=== PATIENT | male | born 1950 | race Caucasian/White ===

== ENCOUNTER 2016-11-16 10:49 | Emergency (ER) | payer MEDICARE ==
[~2016-11-16 10:49] MED LIST: Iopamidol 370 76% 100 ML VIAL ONE
[2016-11-16 12:14] LABS: #Basophils 0.2 thou/uL (0.0-0.2); #Lymphocytes 1.8 thou/uL (1.20-3.40); #Monocytes 1.4 thou/uL (0.11-0.59); #Neutrophils 9.5 thou/uL (1.40-6.50); %Basophils 1.3 % (0.0-1.0); %Eosinophils 0.3 % (0.0-10.0); %Lymphocytes 13.7 % (21.0-51.0); %Neutrophils 73.8 % (42.0-75.0); Mean Corpuscular HGB CONC 33.4 g/dL (32.0-36.0); Mean Corpuscular Hemoglobin 28.8 pg (27.0-31.0); Mean Corpuscular Volume 86.2 fl (80.0-94.0); Mean Platelet Volume 6.4 fL (7.4-10.4); Platelet Count 225 thou/uL (130-400); RBC Distribution Width 11.4 % (11.5-14.5); White Blood Cell (WBC) Count 12.9 thou/uL (4.8-10.8)
[2016-11-16 12:21] LABS: ALT (SGPT) 36 U/L (0-55); AST (SGOT) 41 U/L (5-34); Albumin 4.4 g/dL (3.4-4.8); Alkaline Phosphatase 125 U/L (40-150); Anion Gap 19 mmol/L (10-20); BUN (Urea Nitrogen) 17 mg/dL (8.4-25.7); Bilirubin, Total 0.9 mg/dL (0.2-1.2); Calc. Creatinine Clearance 0 mL/min (70-130); Calcium 9.2 mg/dL (7.8-10.44); Carbon Dioxide 21 mmol/L (23-31); Chloride 101 mmol/L (98-107); Estimated GFR-MDRD 69; Globulin 3.1 g/dL (2.4-3.5); Glucose 113 mg/dL (80-115); Potassium 4.2 mmol/L (3.5-5.1); Protein, Total 7.5 g/dL (5.8-8.1); Sodium 137 mmol/L (136-145)
[2016-11-16] MEDS ORDERED: Sodium Chloride 0.9% 1,000 ML ONE (12:31)
[2016-11-16] MEDS ORDERED: Acetaminophen 325 MG TAB ONE (12:31)
[2016-11-16 12:36] LABS: Troponin I 2.085 ng/mL (< 0.028)
[2016-11-16] MEDS ORDERED: Enoxaparin Sodium 30 MG/0.3 ML SYRINGE ONE (13:03)
[2016-11-16] MEDS ORDERED: Enoxaparin Sodium 40 MG/0.4 ML SYRINGE ONE (13:03)
--- NOTE | 2016-11-16 13:08 | RAD ---
EXAM: CHEST 2 VIEWS: HISTORY: Body aches, tachycardia. FINDINGS: Normal cardiac silhouette. The pulmonary vessels and hilum are normal. No mass. No consolidation. No pneumothorax or osseous abnormalities. IMPRESSION: No acute cardiopulmonary process. POS: DAVIDH
--- NOTE | 2016-11-16 15:45 | CT ---
CT ANGIOGRAM OF THE CHEST: History: Body aches. Elevated heart rate. Fatigue. Elevated D-Dimer. Dyspnea. Comparison: None. Technique: CT angiogram of the chest was performed in the axial plane. Coronal bilateral oblique 3D maximum projection images are submitted for interpretation. FINDINGS: No mediastinal mass, lymphadenopathy, or hematoma. The heart size is normal. No pericardial effusion . Thoracic aorta and upper abdominal aorta have normal caliber. No periaortic fat stranding. There is a large hypodense mass in the right upper quadrant, anteriorly displaced in the kidney. Hyp erdense mass is presumed to be retroperitoneal in location and may represent an incompletely evaluat ed multiseptated right renal cyst. Remaining upper solid organs are unremarkable. Trachea and central bronchi are patent. No suspicious masses. There is a nonspecific pleural based n odule in the left lower lobe measuring 0.4 cm. No pleural effusion. No pneumothorax. Calcified granu brandon in the superior segment of the right lower lobe noted. Adequate contrast opacification of the pulmonary arterial systems to the level of the segmental kvng ramos. No filling defect to suggest thromboembolism. IMPRESSION: 1. No acute cardiac artery embolus lower segment arteries. 2. Incompletely evaluated hypodense mass, in the right retroperitoneal region, presumed to be due a large exophytic right renal cyst. Nonemergent renal mass protocol CT can be performed. POS: NIMESH
== END 2016-11-16 14:19 | disposition short-term general hospital (02) ==
LOC: NAV ERS 10:49
DX: I21.4 Non-ST elevation (NSTEMI) myocardial infarction (principal)
CPT/HCPCS: 71020; 71275; 80053; 82553; 83880; 84484; 85025; 85379; 87040; 93005; 96360; 96361; 96372; J1650; J7050